=== PATIENT | male | born 1985 | race Asian ===

== ENCOUNTER 2023-09-28 17:16 | Emergency (ER) | payer OTHER, SELFPAY ==
[2023-09-28] VITALS (12 sets, daily range): BP systolic 110–116; BP diastolic 64–72; PULSE 60–77; RESP 10–31; TEMP 36.4; O2SAT 100
--- NOTE | ~2023-09-28 | CT_ITS ---
EXAMINATION: CT abdomen pelvis wo con DATE: 09/28/2023 19:54 INDICATION: left flank pain, hematuria TECHNIQUE: Computed tomography (CT) of the abdomen and pelvis was performed without intravenous contr ast. Automated exposure control and iterative reconstruction technique were employed. The dose-length product was 266.40 mGy-cm. COMPARISON: None. FINDINGS: Lower thorax: Unremarkable Liver: Normal. Biliary/Gallbladder: Gallbladder is normal. No bile duct dilation. Pancreas: No mass or duct dilation. Spleen: Normal. Adrenals:No mass. Kidneys: No suspicious mass. Mild left pelviectasis and caliectasis. 3 mm nonobstructive, right upper pole calcification. 2 mm calcification in the proximal left ureter. GI tract: No small or large bowel dilation. Normal appendix. Mesentery/Peritoneum: No ascites, mass, or free air. Retroperitoneum: No mass. Pelvis: Pelvic organs are within normal limits. Soft Tissues: Soft tissues and body wall unremarkable. Bones: No acute osseous finding. IMPRESSION: 2 mm left upper ureteral stone causing mild obstructive uropathy. Reviewed, dictated and finalized at location K. LAB TECHNICIAN
--- NOTE | 2023-09-28 17:52 | ED.BACK ---
HPI - Back Pain/Injury General Chief Complaint: Back Pain/Injury Stated Complaint: back pain Time Seen by Provider: 09/28/23 17:39 Source: patient Mode of arrival: EMS Limitations: language barrier (patient's friend is interpreting which he preferred) History of Present Illness HPI Narrative: This is a 28-year-old male that presents to the emergency department for left-sided low back pain. Reports constant since this afternoon. He was given Toradol and room via EMS with some improvement. No exacerbating factors. No recent injuries or trauma. Denies fevers, vomiting, dysuria, or hematuria. Related Data Allergies Allergy/AdvReac Type Severity Reaction Status Date / Time No Known Allergies Allergy Verified 09/28/23 17:45 Review of Systems Review of Systems: CONSTITUTIONAL: Denies fever GASTROINTESTINAL: Denies abdominal pain, nausea, vomiting GENITOURINARY: Denies dysuria or hematuria. SKIN: Denies rash MUSCULOSKELETAL: Reports back pain NEUROLOGIC: Denies numbness, or weakness. All systems reviewed & are unremarkable except as noted in HPI and below PMFSH Past Medical History Medical History (Updated 09/28/23 @ 20:14 by Renetta Botello PA-C) No active medical problems Social History Social History (Updated 09/28/23 @ 17:54 by Renetta Botello PA-C) Smoking status: Never smoker Exam Narrative: GENERAL: Well-appearing, well-nourished, and in no acute distress. HEAD: Normocephalic, atraumatic. EYES: EOMI. CHEST: Clear to auscultation. No respiratory distress. No wheezes rales or rhonchi HEART: Regular rate and rhythm. No murmur heard. Normal peripheral pulses. ABDOMEN: Soft, nontender, nondistended, normal active bowel sounds. BACK: No midline spinal tenderness EXTREMITIES: Normal range of motion. No edema. SKIN: Warm, dry, no rash. NEURO: No focal deficits. Alert and oriented x3. PSYCH: Normal mood and affect Course Course Emergency Course: patient updated on his workup and agrees with plan of care Vital Signs Vital signs: Vital Signs Temperature 97.5 F L 09/28/23 17:28 Pulse Rate 68 09/28/23 17:28 Respiratory Rate 16 09/28/23 17:28 Blood Pressure 110/65 09/28/23 17:28 Pulse Oximetry 100 09/28/23 17:28 Oxygen Delivery Room Air 09/28/23 17:28 Temperature 97.5 F L 09/28/23 17:28 Pulse Rate 63 09/28/23 17:39 Respiratory Rate 14 09/28/23 17:39 Blood Pressure 111/64 09/28/23 17:39 Pulse Oximetry 100 09/28/23 17:39 Oxygen Delivery Room Air 09/28/23 17:28 MDM - Back Pain/Injury MDM Narrative Medical decision making narrative: Patient presents to the emergency department for left flank pain ongoing since this afternoon. He is afebrile and nontoxic appearing. His vitals are stable. CBC with mild leukocytosis to 12.1. Metabolic panel without concerning findings. UA with greater than 100 blood blood cells. Also calcium oxalate crystals present. CT abdomen pelvis shows a 2 mm left ureteral stone. Patient updated on his workup and agrees with plan of care. Resting comfortably after Toradol. He is to follow-up with urology. He was given warnings to return to the ER Differential Diagnosis Differential diagnosis: Likely lumbar radiculopathy, strain of lumbar region, renal colic and other ( kidney stone) Lab Data Attestation: I reviewed the patient's lab results. 09/28/23 18:24 09/28/23 18:24 Labs: Lab Results 09/28/23 Range/Units 18:24 WBC 12.1 H (4.5-10.0) K/mm3 RBC 4.93 (4.6-6.20) M/mm3 Hgb 15.2 (14.0-18.0) g/dL Hct 45.6 (42.0-52.0) % MCV 92.5 (80-100) fl MCH 30.8 (26-34) pg MCHC 33.3 (32-36) g/dl RDW 11.6 (11.5-14.5) % Plt Count 227 (150-375) k/mm3 MPV 9.0 (7.4-10.4) fl Immature Gran % (Auto) 0.4 (0-0.5) % Neut % (Auto) 88.1 H (45.5-73.1) % Lymph % (Auto) 6.5 L (18.3-44.2) % [place] % (Auto) 4.0 (2.6-8.5) % Eos % (Auto) 0.7 (0-4.4) % Baso % (Auto) 0.3
[2023-09-28 18:48] LABS: Basophils Percent Auto 0.3 % (0.2-1.2); Eosinophils Absolute Auto 0.1 K/mm3 (0-0.3); Eosinophils Percent Auto 0.7 % (0-4.4); Hematocrit 45.6 % (42.0-52.0); Hemoglobin 15.2 g/dL (14.0-18.0); Immature Granulocyte Absolute 0.05 K/mm3 (0.00-0.031); Immature Granulocyte Percent A 0.4 % (0-0.5); Lymphocytes Absolute Auto 0.79 K/mm3 (0.9-3.2); Lymphocytes Percent Auto 6.5 % (18.3-44.2); Mean Corpuscular HGB Conc 33.3 g/dl (32-36); Mean Corpuscular Hemoglobin 30.8 pg (26-34); Mean Corpuscular Volume 92.5 fl (80-100); Monocytes Absolute Auto 0.5 K/mm3 (0.1-0.6); Neutrophils Absolute Auto 10.6 K/mm3 (1.3-6.7); Neutrophils Percent Auto 88.1 % (45.5-73.1); Platelet Count Result 227 k/mm3 (150-375); Red Blood Count 4.93 M/mm3 (4.6-6.20); Red Cell Distribution Width 11.6 % (11.5-14.5); White Blood Count 12.1 K/mm3 (4.5-10.0)
[2023-09-28 19:08] LABS: Alanine Aminotransferase 25 U/L (6-50); Albumin Level 4.1 g/dL (3.5-5.1); Alkaline Phosphatase 81 U/L (38-126); Anion Gap 8 mmol/L (8-16); Aspartate Amino Transferase 25 U/L (17-59); Bilirubin,Total 1.4 mg/dL (0.2-1.3); Blood Urea Nitrogen 13 mg/dL (9-20); Calcium 9.3 mg/dL (8.4-10.2); Carbon Dioxide 28 mmol/L (22-30); Chloride 104 mmol/L (98-107); Estimated CRCL calculation 82 ml/min; Estimated Glomerular Filt Rate > 60; Glucose 133 mg/dL (65-110); Potassium 3.5 mmol/L (3.4-5.0); Sodium 140 mmol/L (137-145)
[2023-09-28 19:22] LABS: Bacteria Urine None Seen /hpf; Calcium Oxalate Crystals Urine Present /hpf; Hyaline Casts Urine Present /lpf; RBC Urine >100 /hpf (0-2); Squamous Epithelial Cell Urine None seen /hpf (Few)
[2023-09-28 19:23] LABS: Appearance Urine Cloudy (Clear); Bilirubin Urine 1+ (Negative); Blood Urine 3+ (Negative); Glucose Urine UA Negative (Negative); Ketones Urine 2+ mg/dL (Negative); Leukocyte Esterase Ur 1+ LEU/UL (Negative); Nitrate Urine Negative (Negative); Protein Urine 2+ mg/dL (Negative); Specific Grav Ur 1.027 (1.001-1.035)
--- NOTE | 2023-09-28 19:23 | PC.NURSE ---
this rn assumed care of patient. this rn took patient report from chris lua.
[2023-09-28 19:24] LABS: Color Urine Amber (Yellow)
[2023-09-28 19:25] LABS: Add Urine Microscopic? YES
[2023-09-28] MEDS: SODIUM CHLORIDE 0.9% IV 1,000 ML 999 ML IV CONT (19:57)
== END 2023-09-28 20:42 | disposition home or self-care (01) ==
PROVIDERS: Emergency Provider Physician Assistant
DX: N13.9 Obstructive and reflux uropathy, unspecified (principal); N20.1 Calculus of ureter
CPT/HCPCS: 36415; 74176; 80053; 81001; 85025; 87086; 96360; 99284; J7030